=== PATIENT | female | born 1940 | race Caucasian/White ===

== ENCOUNTER 2019-09-12 20:43 | Emergency (ER) | payer MEDICARE ==
[~2019-09-12] VITALS: Ht 152.4 cm; Wt 48.6 kg
[2019-09-12] MEDS ORDERED: ONDANSETRON 2MG/ML, 2ML ONE ×2 (21:23→22:02)
[2019-09-12] MEDS ORDERED: SODIUM CHLORIDE 0.9% 1,000ML IVBOLUS ONE (21:30)
[2019-09-12] MEDS ORDERED: ONDANSETRON 2MG/ML, 2ML IVPush ONE (21:30)
[2019-09-12] MEDS ORDERED: SODIUM CHLORIDE FLUSH 10ML SYR IVF ONE (21:30)
--- NOTE | 2019-09-12 21:58 | NUR ---
IV DELAY DUE TO IV PLACEMENT COMPLICATIONS, SECOND NURSE ATTEMPTING. PATIENT IS TOLERATING WELL. BLOOD DRAWN AND SENT TO LAB.
[2019-09-12 22:09] LABS: ALANINE AMINOTRANSFERASE 18 U/L (12-78); ALBUMIN 3.9 g/dL (3.4-5.0); ANION GAP 14 mmol/L (5-15); CHLORIDE 107 mmol/L (98-107); CREATININE 1.04 mg/dL (0.55-1.02)
--- NOTE | 2019-09-12 22:11 | NUR ---
CT PENDING LAB/CREATINE.
[2019-09-12 22:13] LABS: ALKALINE PHOSPHATASE 59 U/L (45-117); BILIRUBIN,TOTAL 1.1 mg/dL (0.2-1.0); TOTAL PROTEIN 7.7 g/dL (6.4-8.2); TROPONIN I < 0.015 ng/mL (0.000-0.045)
[2019-09-12 22:43] LABS: BASOPHILS # (AUTO) 0.16 x10^3/uL (0-0.1); BASOPHILS % (AUTO) 2 % (0-1); EOSINOPHILS % (AUTO) 0 % (1-7); LYMPHOCYTES # (AUTO) 0.87 x10^3/uL (1-3.4); LYMPHOCYTES % (AUTO) 11 % (22-44); MD SCAN; MEAN CORPUSCULAR HGB CONC 32.9 g/dL (32.4-35.8); MEAN CORPUSCULAR VOLUME 94.1 fL (80-100); MEAN PLATELET VOLUME 9.7 fL (7.4-10.4); MONOCYTES # (AUTO) 0.82 x10^3/uL (0.2-0.8); MONOCYTES % (AUTO) 11 % (2-9); NEUTROPHILS # (AUTO) 6.01 x10^3/uL (1.8-6.8); NEUTROPHILS % (AUTO) 76 % (42-75); PLATELET COUNT 57 x10^3/uL (130-400); RED BLOOD COUNT 5.01 x10^6/uL (3.82-5.3); RED CELL DISTRIBUTION WIDTH 14.3 % (9.6-15.2)
[2019-09-12] MEDS ORDERED: OMNIPAQUE 350 MG/ML, 100ML BOTTLE ONE (22:46)
--- NOTE | 2019-09-12 23:27 | NUR ---
PATIENT CURRENTLY PO CHALLENGING, TOLERATING WELL. WILL CONTINUE TO MONITOR.
--- NOTE | 2019-09-12 23:38 | NUR ---
MD AT BEDSIDE WTIH PATIENT DISCUSSING PLAN OF CARE. PATIENT ABLE TO COMPLETE PO CHALLENGE SUCCESSFULLY/
[2019-09-13 00:44] VITALS: BP 152/71
== END 2019-09-13 00:47 | disposition home or self-care (01) ==
LOC: ED 22:25
DX: R10.9 Unspecified abdominal pain (principal); R11.2 Nausea with vomiting, unspecified; R94.31 Abnormal electrocardiogram [ECG] [EKG]; I10 Essential (primary) hypertension; K21.9 Gastro-esophageal reflux disease without esophagitis
CPT/HCPCS: 36415; 74177; 80053; 83605; 83690; 84484; 85025; 93005; 96361; 96374; 99285; J2405; J7030; Q9967